=== PATIENT | male | born 1955 | race Caucasian/White ===

== ENCOUNTER 2018-10-07 13:47 | Emergency (ER) | payer OTHER, BC ==
[~2018-10-07] VITALS: Ht 177.8 cm; Wt 95.2 kg
[~2018-10-07 13:47] MED LIST: AMLODIPINE BESYL5 MG PO; FLOMAX0.4 MG PO; LISINOPRIL40 MG PO; VICODIN ES 7.51 EAC1 PO; ZESTRIL40 MG PO
[2018-10-07] MEDS ORDERED: MELOXICAM7.5 MG PO (14:54)
== END 2018-10-07 15:02 | disposition home or self-care (01) ==
LOC: ED 13:47
DX: M70.42 Prepatellar bursitis, left knee (principal); I10 Essential (primary) hypertension; Z88.5 Allergy status to narcotic agent; Z79.899 Other long term (current) drug therapy
CPT/HCPCS: 73560; 89051; 89060; 99283